=== PATIENT | female | born 1970 | race Caucasian/White ===

== ENCOUNTER → 2021-08-13 | Outpatient (CLI) | payer SELFPAY ==
[2021-08-13 12:10] LABS: BASOPHILS PERCENT AUTO 1 % (0-2); EOSINOPHILS ABSOLUTE AUTO 0.09 K/mm3 (0.00-0.68); EOSINOPHILS PERCENT AUTO 1 % (0-6); Hematocrit 42.1 % (33.0-51.0); Hemoglobin 13.7 g/dL (11.5-16.0); IMMATURE GRAN ABSOLUTE AUTO 0.04 K/mm3 (0.00-0.10); IMMATURE GRAN PERCENT AUTO 0 % (0-1); LYMPHOCYTES ABSOLUTE AUTO 2.98 K/mm3 (0.84-5.20); LYMPHOCYTES PERCENT AUTO 29 % (21-46); MONOCYTES PERCENT AUTO 6 % (4-13); Mean Corpuscular HGB 28.7 pg (26.0-34.0); Mean Corpuscular HGB Conc 32.5 g/dL (31.5-36.5); Mean Corpuscular Volume 88 fL (80-100); Mean Platelet Volume 8.5 fL (9.1-12.4); NEUTROPHILS ABSOLUTE AUTO 6.31 K/mm3 (1.96-9.15); NEUTROPHILS PERCENT AUTO 62 % (41-73); Platelet Count 420 K/mm3 (150-400); RDW Coefficient Variation 14.3 % (11.7-14.2); RDW Standard Deviation 46.2 fL (35.1-46.3); Red Blood Cell Count 4.78 M/mm3 (3.80-5.20); White Blood Cell Count 10.12 K/mm3 (4.00-11.30)
[2021-08-13 12:19] LABS: Albumin, Blood 3.9 g/dL (3.4-5.0); Albumin/Globulin Ratio 1.1 (0.8-1.8); Bilirubin, Total 0.5 mg/dL (0.1-1.0); Bun/Creatinine Ratio 11.8 (12.0-20.0); Creatinine, Blood 0.76 mg/dL (0.40-1.00); Globulin, Blood 3.6 g/dL (2.2-4.0); Potassium, Blood 4.4 mmol/L (3.5-5.5); Total Protein, Blood 7.5 g/dL (6.4-8.2)
== END ==
LOC: LAB SHORT 12:04
PROVIDERS: Physician Assistant
DX: R10.9 Unspecified abdominal pain (principal); R31.9 Hematuria, unspecified
CPT/HCPCS: 80053; 83690; 85025; 87086

== ENCOUNTER 2021-08-29 06:35 | Day surgery (SDC) | payer OTHER ==
[~2021-08-29] VITALS: Ht 170.2 cm; Wt 95.0 kg
[~2021-08-29 06:35] MED LIST: LEVOTHYROXINE75 MC8 PO; Norco 7.5-3251 EACH PO; PANT40 PO; PROG100 PO
[2021-08-29] MEDS ORDERED: LOSARTAN POTASS50 M1 PO (06:50)
--- NOTE | 2021-08-29 11:30 | NUR ---
PT UP TO THE BATHROOM /C SBA. TOLERATED WELL. -BLEEDING OR SWELLING R GROIN AREA.
--- NOTE | 2021-08-29 12:06 | NUR ---
PT VERBALIZED UNDERSTANDING OF WRITTEN AND VERBAL D/C INST. -BLEEDING OR SWELLING R GROIN AREA. IV REMOVED. PT TAKEN OUT OF THE [facility]RT CENTER VIA W/C.
== END 2021-08-29 12:10 | disposition home or self-care (01) ==
LOC: MHTC 06:35
DX: I72.2 Aneurysm of renal artery (principal); F17.200 Nicotine dependence, unspecified, uncomplicated; Z88.8 Allergy status to other drugs, medicaments and biological substances
CPT/HCPCS: 36251-LT; 36252; 36253-RT; 37252; 37253; 76937; 99152; 99153; C1753; C1760; C1769; C1887; C1894; J1644; J2250; J3010; J7030; J7040; Q9967

== ENCOUNTER 2021-09-28 06:36 | Day surgery (SDC) | payer OTHER ==
[~2021-09-28] VITALS: Ht 170.2 cm; Wt 94.0 kg
[~2021-09-28 06:36] MED LIST changes: +LOSARTAN POTASS50 M1 PO
--- NOTE | 2021-09-28 10:32 | NUR ---
PT RETURNED TO RECOVERY ROOM IN BED. RIGHT FEMORAL GROIN SITE SOFT NON-TENDER WITH NO HEMATOMA, NO PULSATILE BLEEDING AND INTACT DRESSING. PT C/O LOWER BACK "CRAMPING." DR JACKSON STATED PT CAN EXPECT SOME LOWER BACK DISCOMFORT AND BLOOD IN URINE POST PROCEDURE. CALL LIGHT IN REACH.
--- NOTE | 2021-09-28 12:48 | NUR ---
DISCHARGE INSTRUCTIONS REVIEWED AND ALL QUESTIONS ANSWERED. RIGHT FEMORAL GROIN SITE STILL SOFT WITH NO HEMATOMA, NO PULSATILE BLEEDING AND INTACT DRESSING. NORCO HELPED BACK PAIN/SORENESS IMPROVE SOME. PT AMBULATED TO BR TO VOID. 20 G IV DISCONTINUED FROM LEFT AC WITH INTACT CANNULA. PT ESCORTED OUT VIA WHEELCHAIR ESCORT.
== END 2021-09-28 12:40 | disposition home or self-care (01) ==
LOC: MHTC 06:36
PROC: 04V93DZ Restriction of Right Renal Artery with Intraluminal Device, Percutaneous Approach (ICD-10-PCS; principal; 2021-09-28)
DX: I72.2 Aneurysm of renal artery (principal); F17.290 Nicotine dependence, other tobacco product, uncomplicated; Z88.8 Allergy status to other drugs, medicaments and biological substances
CPT/HCPCS: 36251-LT; 36253-RT; 37236; 76937; 99152; 99153; A9270; C1725; C1753; C1760; C1769; C1874; C1887; C1894; J1644; J2250; J3010; J7030; J7040; Q9967

== ENCOUNTER → 2021-12-18 | Outpatient (CLI) | payer OTHER ==
[2021-12-18 17:16] LABS: Creatinine Urine 40.9 mg/dL (27.00-270.00); Microalbumin, Urine Quant. 6.52 mg/L (0.000-20.000); Protein, Urine Quantitative 8.7 mg/dL (0.0-11.9)
== END | disposition home or self-care (01) ==
LOC: LAB SHORT 13:47 → LAB 13:47
PROVIDERS: Internal Medicine Nephrology
DX: N18.2 Chronic kidney disease, stage 2 (mild) (principal); D63.1 Anemia in chronic kidney disease; N25.81 Secondary hyperparathyroidism of renal origin; E55.9 Vitamin D deficiency, unspecified; E78.00 Pure hypercholesterolemia, unspecified; G60.9 Hereditary and idiopathic neuropathy, unspecified; D51.8 Other vitamin B12 deficiency anemias; D52.8 Other folate deficiency anemias; D50.9 Iron deficiency anemia, unspecified; R76.9 Abnormal immunological finding in serum, unspecified; R94.5 Abnormal results of liver function studies; R94.6 Abnormal results of thyroid function studies
CPT/HCPCS: 81050; 82043; 82570; 84156

== ENCOUNTER → 2023-09-04 | Outpatient (CLI) | payer BC ==
[2023-09-04 14:33] LABS: Creatinine Urine 80.2 mg/dL (27.00-270.00); Microalbumin, Urine Quant. 8.8 mg/L (0.000-20.000); Protein, Urine Quantitative 10.5 mg/dL (0.0-11.9)
[2023-09-07 23:50] LABS: CREATININE,URINE - PER 24H 1660 mg/d (500-1400); CREATININE,URINE - PER VOLUME 83 mg/dL; HOURS COLLECTED 24 hr; METANEPHRINE,UR - RATIO TO CRT 93 ug/g CRT (0-300); METANEPHRINE,URINE - PER 24H 154 ug/d (36-229); METANEPHRINE,URN - PER VOLUME 77 ug/L; NORMETANEPHRINE,U - PER VOLUME 126 ug/L; NORMETANEPHRINE,URN - PER 24H 252 ug/d (95-650); NORMETANEPHRINE,URN/CRT RATIO 152 ug/g CRT (0-400); TOTAL VOLUME 2000 mL
== END ==
LOC: LAB 12:30 → LAB SHORT 12:30 → LAB FUT 09-02 08:20
PROVIDERS: Internal Medicine Nephrology
DX: N18.2 Chronic kidney disease, stage 2 (mild) (principal); R94.6 Abnormal results of thyroid function studies; R94.5 Abnormal results of liver function studies; R76.9 Abnormal immunological finding in serum, unspecified; E78.00 Pure hypercholesterolemia, unspecified; E55.9 Vitamin D deficiency, unspecified; N25.81 Secondary hyperparathyroidism of renal origin; D63.1 Anemia in chronic kidney disease
CPT/HCPCS: 81050; 82043; 82570; 83835; 84156